=== PATIENT | female | born 1965 | race Caucasian/White ===

== ENCOUNTER 2016-08-17 00:02 | Emergency (ER) | payer OTHER ==
[~2016-08-17] VITALS: Ht 160 cm; Wt 77.8 kg
[~2016-08-17 00:02] MED LIST: HYD25 PO; LOSA100T7 PO; POTA8CAP PO
[2016-08-17 00:14] VITALS: Ht 160 cm; Wt 77.8 kg
--- NOTE | 2016-08-17 02:37 | ERA ---
ER Documentation Chief Complaint Date/Time DATE: 08/17/16 TIME: 02:37 Chief Complaint epigastric pain x 6 days, feels something stuck in epigastric area HPI The patient is a 51-year-old female, presenting to the ER because of epigastric abdominal discomfort for the last 6 days, unable to bump. She denies fever, chills, neck pain, chest pain, dyspnea, nausea, vomiting, diarrhea, constipation or dysuria. She does not smoke does not drink Past medical history: Hypertension Past surgical history: D&C ROS All systems reviewed and are negative except as per history of present illness. Medications Home Meds Active Scripts Ondansetron (Ondansetron Odt) 4 Mg Tab.rapdis, 4 MG PO Q6H Y for NAUSEA AND/OR VOMITING, #10 TAB Prov:JATINDER LE MD 08/17/16 Pantoprazole* (Protonix*) 40 Mg Tablet.dr, 40 MG PO DAILY, #20 TAB Prov:JATINDER LE MD 08/17/16 Reported Medications Potassium Chloride* (Potassium Chloride*) 8 Meq Capsule.er, 8 MEQ PO DAILY, CAP 11/22/14 Hydrochlorothiazide* (Hydrochlorothiazide*) 25 Mg Tab, 25 MG PO DAILY, TAB 11/22/14 Losartan Potassium* (Losartan Potassium*) 100 Mg Tablet, 100 MG PO DAILY, TAB 11/22/14 Allergies Allergies: Coded Allergies: No Known Allergy (Unverified , 08/17/16) PMhx/Soc History of Surgery: Yes (CYST REMOVED LT BREAST, COLONOSCOPY) Anesthesia Reaction: No Hx Neurological Disorder: No Hx Respiratory Disorders: No Hx Cardiac Disorders: No Hx Psychiatric Problems: No Hx Miscellaneous Medical Probl: No Hx Alcohol Use: No Hx Substance Use: No Hx Tobacco Use: No Physical Exam Vitals Vital Signs Date Time Temp Pulse Resp B/P Pulse Ox O2 Delivery O2 Flow Rate FiO2 08/17/16 00:14 98.2 74 20 143/71 97 Physical Exam Const: No acute distress. Head: Atraumatic. Eyes: Normal Conjunctiva. ENT: Normal External Ears, Nose and Mouth. Neck: Full range of motion. No meningismus. Resp: Clear to auscultation bilaterally. Cardio: Regular rate and rhythm, no murmurs. Abd: Soft, non distended, normal bowel sounds, mild epigastric discomfort, no rigidity, rebound, CVA tenderness Skin: No petechiae or rashes. Back: No midline or flank tenderness. Ext: No cyanosis, or edema. Neur: Awake and alert. No focal deficit Psych: Normal Mood and Affect. Result Diagram: 08/17/16 0332 08/17/16 0332 Results 24 hrs Laboratory Tests Test 08/17/16 03:32 08/17/16 05:06 Alanine Aminotransferase (ALT/SGPT) 125IU/L Albumin 4.4g/dl Albumin/Globulin Ratio 1.37 Alkaline Phosphatase 104IU/L Anion Gap 18 Aspartate Amino Transf (AST/SGOT) 81IU/L Basophils # 0.010^3/ul Basophils % 0.3% Blood Urea Nitrogen 9mg/dl Calcium Level 9.2mg/dl Carbon Dioxide Level 30mmol/L Chloride Level 101mmol/L Creatinine 0.56mg/dl Direct Bilirubin 0.00mg/dl Eosinophils # 0.110^3/ul Eosinophils % 1.0% Globulin 3.20g/dl Glucose Level 110mg/dl Hematocrit 42.0% Hemoglobin 14.4g/dl Indirect Bilirubin 0.6mg/dl Lipase 123U/L Lymphocytes # 3.310^3/ul Lymphocytes % 49.4% Mean Corpuscular Hemoglobin 30.5pg Mean Corpuscular Hemoglobin Concent 34.3g/dl Mean Corpuscular Volume 89.0fl Mean Platelet Volume 10.9fl Monocytes # 0.810^3/ul Monocytes % 11.8% Neutrophils # 2.510^3/ul Neutrophils % 37.4% Nucleated Red Blood Cells # 0.010^3/ul Nucleated Red Blood Cells % 0.0/100WBC Platelet Count 22781^3/UL Potassium Level 3.2mmol/L Red Blood Count 4.7210^6/ul Red Cell Distribution Width 14.5% Sodium Level 146mmol/L Total Bilirubin 0.6mg/dl Total Protein 7.6g/dl White Blood Count 6.710^3/ul Bedside Urine Blood 1+ Bedside Urine Glucose (UA) Negative Bedside Urine Ketones (LAB) Negative Bedside Urine Leukocyte Esterase (L Negative Bedside Urine Nitrite (LAB) Negative Bedside Urine Protein (LAB) Negative Bedside Urine pH (LAB) 7.0 Current Medications Medications (Trade) Dose Ordered Sig/[place] Route PRN Reason Start Time Stop Time Status Last Admin Dose Admin Pantoprazole (Protonix Iv) 40 mg ONCE ONCE IV 08/17/16 03:00 08/17/16 03:01 DC 08/17/16 04:08 Metoclopramide HCl (Reglan) 10 mg ONCE ONCE IV 08/17/16 03:00 08/17/16 03:01 DC 08/17/16 04:09 Potassium Chloride 40 meq 40 meq ONCE ONCE PO 08/17/16 04:25 08/17/16 04:26 DC Sodium Chloride (NS) 1,000 ml @ 1,000 mls/hr Q1H ONCE IV 08/17/16 04:30 08/17/16 05:29 Procedures/[place] [id number] Radiology Main Line: [phone] DIAGNOSTIC IMAGING REPORT Patient: MARGARITA LEUNG : 1965 Age: 51 Sex: F MR #: [id number] DOS: 08/17/16 0240 Ordering MD: JATINDER LE MD Location: E/R Room/Bed: PROCEDURE: US Abdomen (right upper quadrant). CLINICAL INDICATION: Pain. TECHNIQUE: Multiple real-time longitudinal and transverse images of the right upper quadrant of the abdomen were acquired utilizing a curved array transducer. Images were reviewed on a high-resolution PACS workstation. COMPARISON: None FINDINGS: The liver is normal in size and echogencity. There is no focal intrahepatic mass.. The gallbladder is normal. There is no pericholecystic fluid or gallbladder wall thickening or gallstones. No intra or extrahepatic biliary dilatation is seen. The common bile duct measures 3.2 mm in maximal dimension. The visualized portions of the pancreas are unremarkable with obscuration of the tail of the pancreas. No free fluid is identified. Visualized abdominal aorta and IVC are unremarkable. The right kidney measures 9.6 cm in length there is 1.2 x 0.7 x 1.1 cm cyst in the lower pole of the right kidney. Right kidney is otherwise normal in appearance.. There is no perinephric fluid collection. No hydronephrosis, mass , or calculus is seen. IMPRESSION: 1. Normal examination of the gallbladder without cholelithiasis or evidence for cholecystitis. 2. No evidence for biliary obstruction. 3. Small right renal cyst. RPTAT: HMVK .Jatinder Rueda MD, MD Date Time Electronically viewed and signed by .Jatinder Rueda MD, MD on 08/17/2016 03:19 .K/ CC: JATINDER LE MD MEDICAL MAKING DECISION: The patient is a 51-year-old female, presenting to the ER because of epigastric abdominal pain of unclear etiology, acute hypokalemia. She was treated with Protonix 40 mg IV, Reglan 10 mg IV, potassium chloride 40 mEq p.o. and 1 L normal saline for clinical dehydration with good response. The differential diagnoses considered include but are not limited to cholelithiasis, cholecystitis, cystitis, pancreatitis, hepatitis, gastritis, peptic ulcer disease, gastric ulcer, appendicitis, diverticulitis, cholangitis, choledocholithiasis, partial small bowel obstruction. Departure Diagnosis: Primary Impression: Epigastric pain Additional Impressions: Hypokalemia Transaminitis Condition: Good Comments She was discharged with Protonix, Zofran I discussed the findings with the patient. I advised the patient to follow-up with the primary physician in about 1-2 days for referral to state inspector for endoscopy, sooner if needed and return if any concern. JATINDER LE MD Aug 17, 2016 02:37
[2016-08-17] MEDS ORDERED: METOCLOPRAMIDE 10 MG INJ IV ONE (03:00)
[2016-08-17] MEDS ORDERED: PANTOPRAZOLE 40 MG INJ IV ONE (03:00)
--- NOTE | 2016-08-17 03:19 | RADRPT ---
PROCEDURE: US Abdomen (right upper quadrant). CLINICAL INDICATION: Pain. TECHNIQUE: Multiple real-time longitudinal and transverse images of the right upper quadrant of th e abdomen were acquired utilizing a curved array transducer. Images were reviewed on a high-resoluti on PACS workstation. COMPARISON: None FINDINGS: The liver is normal in size and echogencity. There is no focal intrahepatic mass.. The gallbladder is normal. There is no pericholecystic fluid or gallbladder wall thickening or gallstones. No intr a or extrahepatic biliary dilatation is seen. The common bile duct measures 3.2 mm in maximal dimen emy. The visualized portions of the pancreas are unremarkable with obscuration of the tail of the pancreas. No free fluid is identified. Visualized abdominal aorta and IVC are unremarkable. The right kidney measures 9.6 cm in length there is 1.2 x 0.7 x 1.1 cm cyst in the lower pole of the right kidney. Right kidney is otherwise normal in appearance.. There is no perinephric fluid alejandra ection. No hydronephrosis, mass, or calculus is seen. IMPRESSION: 1. Normal examination of the gallbladder without cholelithiasis or evidence for cholecystitis. 2. No evidence for biliary obstruction. 3. Small right renal cyst. RPTAT: HMVK .Jatinder Rueda MD, Date Time Electronically viewed and signed by .Jatinder Rueda MD, on 08/17/2016 03:19 .K/
[2016-08-17 03:50] LABS: ADD SCAN DIFF NO
[2016-08-17 03:52] LABS: BASOPHILS % 0.3 % (0.0-2.0); EOSINOPHILS # 0.1 10^3/ul (0.0-0.5); HEMOGLOBIN 14.4 g/dl (12.0-16.0); LYMPHOCYTES # 3.3 10^3/ul (0.8-2.9); LYMPHOCYTES % 49.4 % (15.0-51.0); MEAN CORPUSCULAR HEMOGLOBIN 30.5 pg (29.0-33.0); MEAN CORPUSCULAR HGB CONC 34.3 g/dl (32.0-37.0); MEAN PLATELET VOLUME 10.9 fl (7.4-10.4); MONOCYTE # 0.8 10^3/ul (0.3-0.9); MONOCYTES % 11.8 % (0.0-11.0); NEUTROPHIL # 2.5 10^3/ul (1.6-7.5); NEUTROPHILS % 37.4 % (39.0-77.0); PLATELET COUNT 249 10^3/UL (140-415); RED BLOOD COUNT 4.72 10^6/ul (4.20-5.40); RED CELL DISTRIBUTION WIDTH 14.5 % (11.5-14.5); WHITE BLOOD COUNT 6.7 10^3/ul (4.8-10.8)
[2016-08-17 04:00] VITALS: BP 128/57; PULSE 63; RESP 13
[2016-08-17 04:03] LABS: ALBUMIN 4.4 g/dl (3.3-4.9)
[2016-08-17 04:04] LABS: POTASSIUM 3.2 mmol/L (3.5-5.1)
[2016-08-17 04:06] LABS: ALBUMIN/GLOBULIN RATIO 1.37; BILIRUBIN,INDIRECT 0.6 mg/dl (0-1.1); BILIRUBIN,TOTAL 0.6 mg/dl (0.2-1.3); CALCIUM 9.2 mg/dl (8.4-10.2); CREATININE 0.56 mg/dl (0.44-1.00); TOTAL PROTEIN 7.6 g/dl (6.1-8.1)
[2016-08-17] MEDS ORDERED: POTASSIUM CHLORIDE (SR) 20 MEQ TAB PO ONE (04:25)
[2016-08-17] MEDS ORDERED: SOD CHLORIDE 0.9% 1,000 ML IV ONE (04:30)
[2016-08-17 05:05] LABS: URINE BLOOD (Dip) POC 1+ (NEGATIVE)
[2016-08-17] MEDS ORDERED: PANT40TA3 PO (05:14)
[2016-08-17] MEDS ORDERED: ONDA4TAB14 PO (05:15)
== END 2016-08-17 05:24 | disposition home or self-care (01) ==
LOC: E/R 00:02
DX: R10.13 Epigastric pain (principal); E87.6 Hypokalemia; R74.0 Nonspecific elevation of levels of transaminase and lactic acid dehydrogenase [LDH]
CPT/HCPCS: 36415; 76705; 80053; 81003; 83690; 85025; 96361; 96374; 96375; C9113; J2765; J7030; Z7502; Z7610

== ENCOUNTER 2016-12-10 06:02 | Day surgery (SDC) | payer OTHER ==
[~2016-12-10] VITALS: Ht 154.9 cm; Wt 75.2 kg
[~2016-12-10 06:02] MED LIST changes: +ONDA4TAB14 PO; +PANT40TA3 PO
[2016-12-10 06:29] VITALS: Ht 154.9 cm; Wt 75.2 kg
--- NOTE | 2016-12-10 08:14 | GILP ---
DATE OF PROCEDURE: 12/10/2016 NAME OF PROCEDURES: Esophagogastroduodenoscopy and biopsy. SURGEON: Vadim Ty MD. PREOPERATIVE DIAGNOSES: 1. Abdominal pain. 2. Dysphagia. POSTOPERATIVE DIAGNOSES: 1. Gastroesophageal reflux disease. 2. Gastritis. 3. Gastric mucosal biopsies were taken for Helicobacter pylori test. INDICATION FOR THE PROCEDURE: Ms. Whit Saavedra is a 51-year-old female patient who had upper abdomi nal pain, not responding to therapy. Patient also had dysphagia. The patient was scheduled for end oscopic examination for further evaluation. The procedure and possible complications are well explained to the patient. She understood and cons ented to the procedure. DESCRIPTION OF PROCEDURE: Under the influence of fentanyl and Versed, the gastroscope was carefully introduced into the esophagus and under direct vision, it was advanced to the stomach and through t he pylorus into the duodenal bulb and descending duodenum. FINDINGS: ESOPHAGUS: The patient had gastroesophageal reflux disease. There was no stricture or neoplasm. STOMACH: The patient had gastritis. Gastric mucosal biopsies were taken for H. pylori test. DUODENUM: Normal. She tolerated the procedure very well and there was no complication from the procedures. At the end of the procedures, she was awake with stable vital signs and she was discharged home to the care of her family. IMPRESSION: 1. Gastroesophageal reflux disease. 2. Gastritis. 3. Gastric mucosal biopsies were taken for Helicobacter pylori test. PLAN: 1. Omeprazole 40 mg p.o. q.a.m. 2. Await H. pylori test report. Dictated By: VADIM GARDINER/LAISHA Conf#: [id number] DID#: [id number]
[2016-12-10] MEDS ORDERED: MIDAZOLAM 1 MG/ML 2 ML INJ ONE ×2 (09:36)
[2016-12-10] MEDS ORDERED: FENTAnyl 50 MCG/ML VIAL ONE (09:36)
== END 2016-12-10 18:19 | disposition home or self-care (01) ==
LOC: GIL 06:02
PROVIDERS: ATTEND Internal Medicine Gastroenterology
DX: K21.9 Gastro-esophageal reflux disease without esophagitis (principal); K29.70 Gastritis, unspecified, without bleeding; I10 Essential (primary) hypertension
CPT/HCPCS: 43239; 87081; J2250; J3010; Z7610

== ENCOUNTER 2017-03-02 11:00 | Emergency (ER) | payer OTHER ==
[~2017-03-02] VITALS: Ht 162.6 cm; Wt 75.0 kg
[~2017-03-02 11:00] MED LIST changes: -ONDA4TAB14 PO; -PANT40TA3 PO
[2017-03-02 11:05] VITALS: Ht 162.6 cm; Wt 75.0 kg
[2017-03-02] MEDS ORDERED: IBUP-1542 PO (11:51)
[2017-03-02] MEDS ORDERED: CETI10CA PO (11:51)
[2017-03-02] MEDS ORDERED: GUAI-637 PO (11:52)
[2017-03-02] MEDS ORDERED: BENZ100C70 PO (11:52)
--- NOTE | 2017-03-02 11:56 | ERD ---
ER Documentation Chief Complaint Date/Time DATE: 03/02/17 TIME: 11:52 Chief Complaint SORE THROAT X4 DAYS HPI Patient is a 51-year-old female with a past medical history of hypertension presents to the emergency department for concerns of throat pain and cough 4 days. Patient reports pain and swelling. Patient denies any drooling, trismus or hyperextension of her neck. Patient states that her cough is dry in nature. Patient reports taking NyQuil and recall the cough drops with no improvement of symptoms. Patient reports tactile fevers. Patient denies any chest pain, shortness breath, upper extremity pain, nausea, vomiting, abdominal pain or diarrhea. No recent travel. No sick contacts. ROS All systems reviewed and are negative except as per history of present illness. Medications Home Meds Active Scripts Benzonatate* (Tessalon Perle*) 100 Mg Capsule, 100 MG PO Q8H Y for COUGH, #20 CAP Prov:MYRON MCINTYRE PA-C 03/02/17 Guaifenesin* (Robitussin*) 100 Mg/5 Ml Syrup, 100 MG PO Q4H Y for COUGH, #1 BOT Prov:MYRON MCINTYRE PA-C 03/02/17 Cetirizine Hcl* (Zyrtec*) 10 Mg Capsule, 10 MG PO DAILY, #10 TAB.CHEW Prov:MYRON MCINTYRE PA-C 03/02/17 Ibuprofen* (Motrin*) 600 Mg Tab, 600 MG PO Q6, #30 TAB Prov:MYRON MCINTYRE PA-C 03/02/17 Reported Medications Potassium Chloride* (Potassium Chloride*) 8 Meq Capsule.er, 8 MEQ PO DAILY, CAP 11/22/14 Hydrochlorothiazide* (Hydrochlorothiazide*) 25 Mg Tab, 25 MG PO DAILY, TAB 11/22/14 Losartan Potassium* (Losartan Potassium*) 100 Mg Tablet, 100 MG PO DAILY, TAB 11/22/14 Allergies Allergies: Coded Allergies: No Known Allergy (Unverified , 08/17/16) PMhx/Soc History of Surgery: Yes (BREAST CYST) Anesthesia Reaction: No Hx Neurological Disorder: No Hx Respiratory Disorders: No Hx Cardiac Disorders: No Hx Psychiatric Problems: No Hx Miscellaneous Medical Probl: No Hx Alcohol Use: No Hx Substance Use: No Hx Tobacco Use: No Smoking Status: Never smoker Physical Exam Vitals Vital Signs Date Time Temp Pulse Resp B/P Pulse Ox O2 Delivery O2 Flow Rate FiO2 03/02/17 11:05 98.8 80 20 134/68 97 Physical Exam GENERAL: Well-developed, well-nourished female. Appears in no acute distress. HEAD: Normocephalic, atraumatic. No deformities or ecchymosis. EYE: Pupils equal, round, and reactive to light. EOMs intact. No conjunctival erythema. No eye discharge. ENT: External ear without any masses or tenderness. Auditory canals clear bilaterally. TM visualized bilaterally, non-erythematous, non-bulging. Nasal mucosa pink with no discharge. Oropharynx is erythematous with no tonsillar swelling or exudates noted. No uvula deviation. Unilateral tonsillar swelling.. No kissing tonsils. No trismus. No drooling. NECK: Supple. No meningismus. Normal ROM of the neck. LUNG: Clear to auscultation bilaterally. No rhonchi, wheezing, rales or coarse breath sounds. HEART: Regular rate and rhythm. No murmurs, rubs or gallops. BACK: No midline tenderness. EXTREMITES: Equal pulses bilaterally. No peripheral clubbing, cyanosis or edema. No unilateral leg swelling. NEUROLOGIC: Alert and oriented to person, place and time. Moving all four extremities. 5/5 strength in all extremities. Normal speech. Steady gait. SKIN: Normal color. Warm and dry. No rashes or lesions. Procedures/MDM MEDICAL DECISION MAKING: This is a 51-year-old female with a history of hypertension presents emergency department for concerns of throat pain and a cough 4 days. Vital signs were reviewed. Patient was afebrile. Patient was not hypoxic. ENT exam was essentially normal. Lung exam was normal. Given these findings, the patient's presentation is most consistent with viral URI. I have a much lower clinical concern for bacterial infections including pneumonia, meningitis, sinusitis, otitis externa, acute otitis media, strep pharyngitis, epiglottitis or peritonsillar abscess. PRESCRIPTIONS: Ibuprofen, Zyrtec, Robitussin, Tessalon Perles DISCHARGE: At this time, patient is stable for discharge and outpatient management. Supportive therapies such as OTC throat lozenges, salt water gurgles, popsicles and jello discussed. I have instructed the patient to follow-up with his/her primary care physician in 1-2 days. I have instructed the patient to promptly return to the ER for any new or worsening symptoms including increased pain, swelling, fever, nausea, vomiting, weakness or difficulty breathing. The patient and/or family expressed understanding of and agreement with this plan. All questions were answered. Home care instructions were provided. Disclaimer: Inadvertent spelling and grammatical errors are likely due to EHR/ dictation software use and do not reflect on the overall quality of patient care. Also, please note that the electronic time recorded on this note does not necessarily reflect the actual time of the patient encounter. Departure Diagnosis: Primary Impression: Viral pharyngitis Additional Impression: URI (upper respiratory infection) URI type: unspecified URI Qualified Code: J06.9 - Upper respiratory tract infection, unspecified type Condition: Stable Patient Instructions: Preventing Common Respiratory Infections Additional Instructions: Call your primary care doctor TOMORROW for an appointment during the next 1-2 days.See the doctor sooner or return here if your condition worsens before your appointment time. MYRON MCINTYRE PA-C Mar 02, 2017 11:56
== END 2017-03-02 12:57 | disposition home or self-care (01) ==
LOC: FTE 11:00
DX: J02.9 Acute pharyngitis, unspecified (principal); J06.9 Acute upper respiratory infection, unspecified
CPT/HCPCS: 99283